=== PATIENT | male | born 1975 | race Caucasian/White ===

== ENCOUNTER 2019-03-31 16:31 | Emergency (ER) | payer BC ==
--- NOTE | 2019-03-31 16:53 | UC ---
Throat Pain/Nasal Albert HPI - HPI Summary HPI Summary: bilateral eye pressure and sinus congestion. Deneis runny nose, denies cough. Onset several days ago, Weedday, today the worst its been. Dizzy this am. yesterday sore throat, resolved after salt water gargles. Pt states he was around a lot of 2nd hand smoke Monday night - History of Current Complaint Chief Complaint: UCGeneralIllness Stated Complaint: CONGESTED Time Seen by Provider: 03/31/19 16:51 Hx Obtained From: Patient Onset/Duration: Sudden Onset, Lasting Days Severity: Severe Pain Intensity: 8 Associated Signs & Symptoms: Positive: Sinus Discomfort - Allergies/Home Medications Allergies/Adverse Reactions: Allergies Allergy/AdvReac Type Severity Reaction Status Date / Time morphine Allergy Severe hostility Verified 03/31/19 16:50 PMH/Surg Hx/FS Hx/Imm Hx Previously Healthy: Yes - Surgical History Surgical History: None - Family History Known Family History: Positive: Hypertension - Social History Alcohol Use: None Substance Use Type: None Smoking Status (MU): Never Smoked Tobacco - Immunization History Most Recent Influenza Vaccination: never Most Recent Tetanus Shot: 2010 Most Recent Pneumonia Vaccination: never Review of Systems All Other Systems Reviewed And Are Negative: Yes ENT: Positive: Sinus Congestion Is Patient Immunocompromised?: No Physical Exam Triage Information Reviewed: Yes Appearance: Well-Nourished, Ill-Appearing, Pain Distress Vital Signs: Initial Vital Signs Temp 98.2 F 03/31/19 16:41 Pulse 95 03/31/19 16:41 Resp 16 03/31/19 16:41 BP 180/90 03/31/19 16:41 Pulse Ox 98 03/31/19 16:41 Vital Signs Reviewed: Yes Eye Exam: Normal ENT: Positive: Pharyngeal erythema, Nasal congestion, Sinus tenderness - right frontal Dental Exam: Normal Neck exam: Normal Respiratory Exam: Normal Respiratory: Positive: Chest non-tender, Lungs clear, Normal breath sounds Cardiovascular Exam: Normal Abdominal Exam: Normal Musculoskeletal Exam: Normal Neurological Exam: Normal Psychological Exam: Normal Skin Exam: Normal Throat Pain/Nasal Course/Dx - Course Course Of Treatment: hx obtained, exam performed ,meds reviewed, treated for frontal sinusitis - Differential Dx/Diagnosis Provider Diagnosis: Sinusitis Discharge ED - Sign-Out/Discharge Documenting (check all that apply): Patient Departure All imaging exams completed and their final reports reviewed: No Studies - Discharge Plan Condition: Stable Disposition: HOME Prescriptions: Azithromycin TAB* [Zithromax TAB (Z-ENID) 250 mg #6 tabs] 250 mg PO DAILY #4 tab Patient Education Materials: Sinusitis (ED) Referrals: No Primary Care Phys,NOPCP [Primary Care Provider] - Additional Instructions: 1. take the medication as prescribed. 2. Use yoru flonase daily for the next 2 weeks 3. Increase fluids 4. Warm compresses to forhead 5. FOllow up if not improving - Billing Disposition and Condition Condition: STABLE Disposition: Home - Attestation Statements Provider Attestation: I was available for consult. This patient was seen by the [facility]. The patient was not presented to, seen by, or examined by me. -Sukhwinder
[2019-03-31 16:55] VITALS: BP 180/110
[2019-03-31] MEDS ORDERED: Azithromycin TAB* 250 MG PO ONE (17:05)
== END 2019-03-31 17:17 | disposition home or self-care (01) ==
LOC: UCEAST 16:31
DX: J32.9 Chronic sinusitis, unspecified (principal); Z88.5 Allergy status to narcotic agent
CPT/HCPCS: 99202; A9270-GY; G0463